=== PATIENT | male | born 1980 | race Caucasian/White ===

== ENCOUNTER 2024-06-28 12:08 | Emergency (ER) | payer OTHER, SELFPAY ==
--- NOTE | 2024-06-28 12:14 | ED.EAR ---
HPI - Ear Problem General Stated complaint: right ear Source: patient Mode of arrival: ambulatory Limitations: no limitations History of Present Illness HPI Narrative: 44 y/o male presented for c/o right ear pain. onset today. Pain is described as throbbing. Denies hearing changes, tinnitus, dizziness, jaw pain or clicking, n/v/d/f/c or recent illness. Says he has had similar symptoms intermittently over the past few years ,and it tends to occur with stress. States the pain started when he got to work and had more stress. Has not taken anything for symptoms. Complaint: ear pain Related Data Allergies Allergy/AdvReac Type Severity Reaction Status Date / Time No Known Drug Allergies Allergy Verified 10/05/11 13:06 Review of Systems Review of Systems: CONSTITUTIONAL: Denies malaise, chills, or fever. EYES: Denies visual changes, redness, or discharge. ENT: Denies rhinorrhea, congestion, sinus pain, and sore throat. Reports ear pain CARDIOVASCULAR: Denies chest pain, palpitations, or edema. RESPIRATORY: Denies cough or dyspnea. GASTROINTESTINAL: Denies abdominal pain, nausea, vomiting, diarrhea SKIN: Denies rash or itching. MUSCULOSKELETAL: Denies myalgia. NEUROLOGIC: Denies headache. All systems reviewed & are unremarkable except as noted in HPI and below PMFSH Comments At time of signature, agree with nursing past medical, surgical, social and family history. There is no relevant family history pertinent to the presenting complaint Exam Narrative: GENERAL: Well-appearing, and in no acute distress. HEAD: Normocephalic EYES: PERRLA, conjunctivae clear ENT: Nares clear. Mucous membranes moist. TMs pearly mckeon with dull light reflex bilaterally; no tragal tenderness. no drooling, no hoarseness, no trismus, uvula midline. NECK: Supple. No lymphadenopathy CHEST: Clear to auscultation, breath sounds equal. HEART: Regular rate and rhythm. No murmur heard. SKIN: Warm, dry, no rash. NEURO: Alert and oriented x3. PSYCH: Normal mood and affect Course Course Emergency Course: Patient is aware of diagnosis, understands and agrees to treatment plan. Anticipatory guidance given. Patient agrees to follow-up as directed and is aware of reasons to seek care at the emergency department. Portions of this record may have been created with voice recognition software Level of Care: Express Care Visit Vital Signs Vital signs: Reviewed Medical Decision Making MDM Narrative Medical decision making narrative: discussed physical exam findings, no cerumen impaction, no infection.Advised supportive measures and signs/symptoms to go to the ER. Patient is appropriate for outpatient treatment and follow-up. Differential Diagnosis Differential Diagnosis: Coronavirus, strep pharyngitis, allergic rhinitis, upper respiratory tract infection, sinusitis, rhinosinusitis, nasopharyngitis, viral pharyngitis, otitis media, otitis externa, eustachian tube dysfunction, foreign body, cerumen impaction. Discharge Plan Discharge Clinical Impression: Otalgia of right ear Patient Disposition: Home, Self-Care Condition: Stable Instructions: Antibiotic Form, Earache (ED) Additional Instructions: Recommend antihistamine such as Benadryl, Zyrtec or Kasia for sinus congestion Flonase nasal spray, 1 spray in each nostril once daily until symptoms improve Tylenol 1000mg every 8 hours as needed to reduce fever, pain Please schedule a follow-up visit with your personal physician if your symptoms persist, change or worsen significantly, go to the emergency department for further evaluation. Patient Language: Romanian Follow-up/Referrals: Grady,Burak Perdomo MD [Primary Care Provider] - Time of Disposition: 12:25
[2024-06-28 12:16] VITALS: BP 140/71; PULSE 74; RESP 16; TEMP 36.9; O2SAT 100
--- OUTSIDE RECORDS SUMMARY | 2024-06-28 12:29 | XMS_ITS | Referral Summary ---
Author Organization [facility] Address [address] [place] [address] Care Team Providers Care Human Resources Vice President Name Role Phone Lester Rodriguez MD Primary Care Provider [phone] Source Comments [facility],non-[facility] Affiliates and Associated Physician Practices is amultiple site organization consisting of ambulatory clinics and hospital sitesin [place], [place], [place] and [place]. This disclosure is being madepursuant to the Care Everywhere program and may not contain all information available regarding this patient. Last updated 18.[facility] [employer] Social History Tobacco Use Types Packs/Day Years Used Date Smoking Tobacco: Never Assessed Sex and Gender Information Value Date Recorded Sex Assigned at Not on file Gender Identity Not on file Sexual Orientation Not on file Last Filed Vital Signs Vital Sign Reading Time Taken Comments Blood Pressure 132/84 06/25/2018 5:07 PM [facility] Pulse 75 06/25/2018 5:07 PM [facility] Temperature 37.1 C (98.7 F) 06/25/2018 5:07 PM [facility] Respiratory Rate - - Oxygen Saturation 94% 06/25/2018 5:07 PM [facility] Inhaled Oxygen Concentration - - Weight 72.6 kg (160 lb) 06/25/2018 5:07 PM [facility] Height 182.9 cm (6') 06/25/2018 5:07 PM [facility] Body Mass Index 21.7 06/25/2018 5:07 PM [facility] Plan of Treatment Not on file Care Teams Human Resources Vice President Relationship Specialty Start Date End Date Lester Rodriguez MD [facility] [place] [address] PCP - General Family Medicine 06/25/18
--- OUTSIDE RECORDS SUMMARY | 2024-06-28 12:29 | XMS_ITS | Referral Summary ---
Author Organization [facility] [address] Address [address] [place] [address] Phone Care Team Providers Care Maker Up Folding Name Role Phone Burak Rasmussen MD Primary Care Provider [phone] Rashad Love MD Unavailable [phone] Elton Goodman MD Unavailable Allergies No known active allergies Medications multivitamin tabletIndicatio ns:Vitamin Deficiency Prevention Take 1 tablet by mouth daily 02/17/2023 Active amitriptyline (ELAVIL) 10 mg tabletIndicatio ns:TMJ arthralgia Take 1 tablet (10 mg total) by mouth nightly 30 tablet 1 02/13/2024 Active Active Problems Problem Noted Date Diagnosed Date Popping of right ear 01/18/2024 Assessment & Plan (02/16/2024 9:10 AM CDT): New symptom, started about a month ago. He notes frequent popping sensations in the right ear and subjective loss of hearing on that side. Sometimes he hears his heart pounding in his ears. He reports extreme stress at work which seems to precipitate the symptoms. His notes grinding of his teeth at night. On exam, canals are normal. There is mild bilateral TM dullness or sclerosis, but no acute findings. There is moderate crepitus in the right TMJ with opening and closing of the jaw. 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 Other causes are possible. In particular, he notes a mild flare of allergic rhinitis recently, and he is a smoker which could cause Eustachian tube dysfunction. I recommended a trial of low-dose amitriptyline at night to start with. Return in 1-2 weeks for re- evaluation and for his annual. Other chest pain 01/18/2024 Assessment & Plan (02/16/2024 9:09 AM CDT): New symptom, started about a month ago concurrent with the popping of his right ear. He describes intermittent retrosternal chest burning or tightness that lasts for up to an hour at a time and subsides spontaneously. It is not precipitated by exertion. He can finish a full game of golf without having any chest symptoms. He does note these symptoms when he is under extreme stress which has been the case lately at work. He denies radiation of the pain into the neck or jaw or arms. We ordered an EKG in the office today which is normal except for nonspecific RSR in precordial leads V1&2, and left atrial enlargement. Symptoms are somewhat suggestive of coronary disease. We ordered a treadmill stress test and labs for further risk stratification. We also ordered an echocardiogram to evaluate chamber size and valve function. Return in about two weeks. 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 We are starting a trial of low dose amitriptyline. 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 EMG 04/23/2021: This is an abnormal electrodiagnostic study with evidence of right median sensory entrapment neuropathy of the flexor retinaculum, i.e., carpal tunnel syndrome. 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 Patient declined referral. Assessment & Plan (02/17/2023 6:01 PM CDT): Symptoms are largely unchanged. There is no evidence of muscle atrophy or fasciculations. He previously declined referral and does not want to pursue anything at this time. We will monitor clinically. Assessment & Plan (05/19/2021 12:12 PM SALES PLANNER): We evaluated him for neuropathic symptoms in the right arm. EMG/NCS is consistent with median nerve neuropathy. Exam is stable with no weakness, atrophy, fasciculations. Reflexes are diffusely hypoactive and symmetrical. His symptoms fluctuate but do not seem to be progressive. There do seem to be some possible nerve root symptoms as well including pain in the upper right scapula area, and intermittent numbness in the low right thumb only. Symptoms are exacerbated when he extends his neck. He says symptoms are not bad enough to pursue additional evaluation or treatment at this time such as MRI of the C-spine. He will call if there is progression including any worsening of pain, development of weakness, loss of muscle mass. Right elbow pain 02/16/2021 Overview (06/07/2022): Hit elbow on railing of his boat or his deck, not sure where or exactly when, injury was probably around 01/31/2021. EMG 04/23/2021: This is an abnormal electrodiagnostic study with evidence of right median sensory entrapment neuropathy of the flexor retinaculum, i.e., carpal tunnel syndrome. 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 Assessment & Plan (05/02/2021 5:22 PM SALES PLANNER): We evaluated him for right elbow pain, and distal symptoms which route returner to probably be due to median nerve neuropathy. He does not want any additional evaluation or treatment at this time. Symptoms are intermittent and not progressive. He takes ibuprofen occasionally as needed. Assessment & Plan (03/18/2021 5:00 PM CDT): About one month ago, he forcefully and accidentally hit the mid to distal triceps area of the right arm on his deck or on the railing on his boat. He does not remember the exact details. It was sore for awhile afterwards, but gradually improved. About two weeks ago, he developed pain in the right shoulder extending distally to the elbow area and then down the forearm to his right thumb where he has some numbness in the thumb. The discomfort is moderate and keeps him from sleeping well. He denies having any pain or history of injury in the neck. He does have a history of remote injury (15 years ago) to the right upper back between the shoulder blade and spine. This still bothers him at times in certain positions and when he presses on that area. He has not tried any OTC medication for this discomfort. Exam is negative for any swelling or deformity. Strength is normal. Reflexes are diminished in the right arm compared to the left. This sounds like a neuropathic pain. It could be a contusion from his previous injury, or could be unrelated. We will get an EMG and nerve conduction study. We will have him take some Aleve for a couple of weeks to see if that helps. We will check some labs as ordered. We will see him back in two weeks to go over EMG results and determine if additional workup or referral as needed. Other fatigue 11/16/2018 Overview (05/02/2021): Seemed to start after he turned 38. Assessment & Plan (03/08/2023 6:15 AM CDT): He again complains of fatigue. He denies daytime sleepiness. He declines any evaluation of this symptom. He figures it is just that he is getting older and has a very busy family life. 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 Assessment & Plan (05/19/2021 12:14 PM SALES PLANNER): He complains of having a fair amount of fatigue. Most of this sounds like lack of motivation. He is also not a morning person. It takes him several cups of coffee to get going in the morning. He gets 7-8 hours of sleep but wakes up feeling unrested. His says he snores. At night he has no motivation to do things. The winter months are especially hard on him. Recent labs were pretty unremarkable except for mild hyponatremia and mild hyperkalemia. It seems like after the age of 38 he lost a lot of interest in various activities including sports, Internet marc with friends, even outdoor activities, although he enjoys boating during the summer months. He has two young sons aged four and nine. The 9-year-old is getting into basketball so he is somewhat involved in that activity. His symptoms of fatigue are probably multifactorial. There is the possibility of obstructive sleep apnea although he does not fit the typical profile. It sounds like he has some mild dysphoria, possibly seasonal affective disorder. He also seems somewhat bored with his current work and life routine. The electrolyte abnormalities are somewhat suggestive of adrenal insufficiency. We will check follow-up electrolytes and a random cortisol. Otherwise I recommended that he try become more physically active. We discussed possible follow-up in six months, but he prefers in annual follow-up. He will advise me of any changes in his status before then. Lower urinary tract symptoms (LUTS) 10/26/2018 Overview (11/07/2018): Mild difficulty urinating first thing in a.m. Mild prostate enlargement on exam. Patient declined PSA screen or urology referral, see phone message. Assessment & Plan (03/08/2023 6:14 AM CDT): In the past, he has mentioned lower urinary symptoms (mild difficulty with urination first thing in the morning). He declined evaluation at that time. He has no new urinary symptoms of concern. We will continue to monitor clinically. Assessment & Plan (11/01/2019 1:32 PM CDT): He has some mild urinary difficulty first thing in the morning, and at his initial visit there was mild prostate enlargement. He had declined PSA testing. There is no family history of prostate cancer. He declines a follow-up rectal today. He says there is no progression of his urinary symptoms. No dysuria or hematuria. Chronic pain of right knee 10/17/2016 Overview (10/26/2018): Medial right femoral condyle pain for 2 years, usually with overuse. Walks on concrete a lot. Assessment & Plan (05/02/2021 5:27 PM SALES PLANNER): He continues to have intermittent pain in the right medial knee, currently localized to the tibial plateau, but somewhat ill-defined, previously more femoral condyle area. This could be a chronic injury from previous athletics (he played a lot of basketball). He also spends a lot of time on concrete floors at work. Exam is notable for very mild localized tenderness over the anterolateral medial tibial plateau. There is no joint effusion or warmth. We will monitor clinically. Assessment & Plan (11/03/2018 3:11 PM CDT): For the past two years, he has had intermittent pain in the right knee. It seems to localize to the medial femoral condyle, and radiates somewhat proximally into the right medial thigh. He walks on concrete a lot, and this makes the pain worse. He denies any history of injury. Exam shows no abnormality. We discussed getting an x-ray versus other evaluation, but symptoms seem fairly mild at this time, so he wants to defer any additional workup for the time being. He will call if things get worse for additional evaluation and referral. Tobacco use disorder 10/17/1997 Assessment & Plan (02/13/2024 2:16 PM CDT): Chronic, present for decades, uncontrolled. He is still smoking cigarettes. He knows he should quit and has tried several times without success. We encouraged ongoing efforts and gave him some resources. Assessment & Plan (02/17/2023 6:02 PM CDT): He continues to smoke about 3/4 PPD. He is motivated to quit and did successfully quit for a few months when he turned 38. He plans to try again. We discussed aids that might help him quit including patches, gum and medications, but he is not interested in these options at this time. Assessment & Plan (05/19/2021 12:11 PM SALES PLANNER): He is still smoking cigarettes, about 1/2 pack per day. We discussed smoking cessation strategies including picking a quit date and using nicotine replacement. I suggested the patches. He has used him successfully in the past to quit for a couple of months on his [age] birthday. Unfortunately he relapsed. He plans to try again. Assessment & Plan (11/01/2019 1:32 PM CDT): He continues to smoke cigarettes I strongly encouraged smoking cessation. Assessment & Plan (05/21/2019 9:16 AM SALES PLANNER): He quit successfully for about four months, but then relapsed. I encouraged him to try cessation again. Assessment & Plan (11/03/2018 3:12 PM CDT): He has smoked since age 17. He successfully quit using the nicotine patches when he turned 38, but then relapsed pretty quickly. He is smoking less than he did previously, only about 1/3 of a pack a day. I strongly urged him to quit smoking again. He can try the nicotine patch again. The cost is about the same as cigarettes. We also discussed the option of using a medication to help him quit, but he has to have a strong desire to quit. He does enjoy the habit but knows that it is bad for him. Resolved Problems Problem Noted Date Diagnosed Date Resolved Date Vasectomy evaluation 11/16/2022 024 Overview (02/13/2024): Vasectomy 10/23/2022, Dr. Goodman. Acute bacterial rhinosinusitis 07/27/2021 06/07/2022 Overview (06/07/2022): Saw ETIENNE Carl. Steroid and antibiotic Rx. Assessment & Plan (07/27/2021 1:45 PM SALES PLANNER): Patient presents with low grade fever, congestion, sinus pressure and cough x 1 week. He was rapid tested for covid and flu as he has not been vaccinated. Testing was negative. On exam he has sinus pressure, bilateral effusions, swollen turbinates and faint wheezing. Symptoms suggestive of acute sinusitis. We will begin him on antibiotic therapy. We will also give steroid to help with secretions and as he does have some wheezing on exam. He will call or return should symptoms worsen or persist. Hyperkalemia 03/07/2021 06/16/2021 Assessment & Plan (06/16/2021 4:58 PM SALES PLANNER): Normal on follow up. Normal Cortisol. Assessment & Plan (05/02/2021 5:22 PM SALES PLANNER): On recent labs, there was mild hyperkalemia and mild hyponatremia. His diet is not the greatest. He eats fair amount of fast food and prepared foods such as frozen dinners. We will check follow-up renal function panel and random cortisol due to complaints of fatigue as well as the electrolyte abnormalities. Ingrown hair 05/07/2019 11/01/2019 Overview (11/01/2019): Resolved. See office note. Assessment & Plan (05/21/2019 9:15 AM SALES PLANNER): He has had a slightly irritated red bump in the right upper groin/scrotal area for the past 2-3 weeks. At first, he thought it was some irritation from his boxer shorts, but when it did not go away, he decided to come get it checked out. It measures a few mm across it is most suggestive of a mildly inflamed hair follicle. There's been no drainage. He has not had a fever. He has no STD concerns. There's no dysuria or hematuria. We will have him apply warm soaks several times a day followed by some topical Neosporin. If symptoms do not resolve over the next week or so, return for re-evaluation. Community acquired pneumonia of right lung 03/22/2019 05/20/2019 Overview (05/20/2019): Details lacking. Hematochezia 10/17/2017 02/13/2024 Overview (02/13/2024): Patient referred for colonoscopy at initial visit, states he will call back when work schedule allows him to proceed. See phone message. Colonoscopy 10/08/2021 normal except hemorrhoids, Dr. Love. Assessment & Plan (05/02/2021 5:25 PM SALES PLANNER): He has repeatedly delayed having the recommended colonoscopy for an episode of hematochezia several years ago. Currently he says he has a slight change in his bowel habits which he has tried to remedy by eating more greens. He says his diet is pretty terrible. He resorts to fast food and convenience foods frequently. He describes incomplete sensation of defecation. There is no blood in the stools. Abdominal exam is benign. We will try to expedite a colonoscopy. Assessment & Plan (11/01/2019 1:31 PM CDT): He had some hematochezia about a year ago after having a difficult bowel movement. It has not recurred. There is no family history of early colon cancer or polyps. He delayed getting the recommended colonoscopy, and by the time he got around to scheduling it there were delays due to COVID-19. He still plans to have it done. He has no new bowel complaints. Assessment & Plan (05/30/2019 5:06 AM SALES PLANNER): He had some hematochezia about a year and a half ago and was referred for colonoscopy, but between his schedule and hospital availability, he never got it done. He says he will get it scheduled now before his follow-up in October. Assessment & Plan (10/26/2018 1:44 PM CDT): Over the past year or so, he has had four or five episodes of blood in the stools, possibly anal bleeding. He also notes that his stools are a little bit more difficult to evacuate, and he has a sensation of incomplete evacuation. Exam shows some possible internal hemorrhoids, otherwise no abnormality. There is no stool for guaiac testing. We will the refer for colonoscopy given the symptoms. Immunizations Name Administration Dates Next Due Influenza, Unspecified 02/13/2024(Deferr ed: Patient Refused),03/10/2023(Deferred: Patient Refused) Social History Tobacco Use Types Packs/Day Years Used Date Smoking Tobacco: Every Day Cigarettes 0.7 26.7 Started: 10/17/1997 Smokeless Tobacco: Never Tobacco Cessation:Ready to Q uit: Not Asked; Counseling Given: Not Answered AUDIT-C Answer Date Recorded Frequency of Alcohol Consumption Not on file 10/05/2021 Average Number of Drinks Not on file 022 Q3: How often do you have si x or more drinks on one occasion? Weekly 10/05/2021 PHQ-2 Answer Date Recorded PHQ-2 Total Score 0 02/17/2023 Personal Safety Answer Date Recorded Getting School Help Needed Not on file 05/07 Sex and Gender Information Value Date Recorded Sex Assigned at Not on file Legal Sex Male 12:03 PM SALES PLANNER Gender Identity Male 04/19/2021 10:24 AM SALES PLANNER Sexual Orientation Not on file Last Filed Vital Signs Vital Sign Reading Time Taken Comments Blood Pressure 116/72 02/13/2024 1:32 PM CDT Pulse 81 02/13/2024 1:32 PM CDT Temperature 36.7 C (98 F) 02/13/2024 1:32 PM CDT Respiratory Rate 16 02/13/2024 1:32 PM CDT Oxygen Saturation 98% 02/13/2024 1:32 PM CDT Inhaled Oxygen Concentration - - Weight 72.6 kg (160 lb) 03/12/2024 9:04 AM CDT Height 185.4 cm (6' 1 ) 03/12/2024 9:04 AM CDT Body Mass Index 21.11 03/12/2024 9:04 AM CDT Plan of Treatment Not on file Procedures Procedure Name Priority Date/Time Associated Diagnosis Comments COLONOSCOPY 10/08/2021 7:45 AM CDT from Last 3 Months or Most Recently Relevant to Health Maintenance Results * COLONOSCOPY (10/08/2021 7:45 AM CDT) Anatomical Region Laterality Modality Other Narrative Procedure Note Rashad Love MD - 10/08/2021 7:45 AM CDT [facility] Patient Name: Jakob Jessica Procedure Date: 10/08/2021 7:45 AM Date of : 1980 Admit Type: Outpatient Age: 41 Gender: Male Attending MD: Rashad Love M.D. Room: [facility] 1 Note Status: Finalized Patient Profile: This is a 41 year old male. Patient had recentepisode or 2 of bright red blood in the rectum when hewiped the tissue. No family history of colon cancer. Procedure: Colonoscopy Indications: This is the patient's first colonoscopy, Rectal bleeding Referring MD: Burak Rasmussen M.D. Providers: Rashad Love M.D. Impression: - The entire examined colon is normal overall. - Internal hemorrhoids. - No specimens collected. Recommendation: - Repeat colonoscopy in 10 years for screening purposes. - Continue present medications. - Maintain high-fiber diet and use any [id number] hemorrhoid preparations asneeded Medicines: Monitored Anesthesia Care Complications: No immediate complications. Estimated Blood Loss: Estimated blood loss: none. Procedure: Pre-Anesthesia Assessment: - Prior to the procedure, a History and Physicalwas performed, and patient medications and allergieswere reviewed. The patient's tolerance of previous anesthesia was also reviewed. The risks andbenefits of the procedure and the sedation options and risks were discussed with the patient. All questions were answered, and informed consent was obtained. Prior Anticoagulants: The patient has taken noanticoagulant or antiplatelet agents. ASA Grade Assessment: III -A patient with severe systemic disease. Afterreviewing the risks and benefits, the patient was deemed in satisfactory condition to undergo the procedure. The benefits, risks and alternatives of theprocedure and sedation were discussed and informed consentwas obtained. All questions were answered. Please referto the signed informed consent document in the medical record. The bowel preparation used was Miralax and bisacodyl tablets via split dose instruction. The scope was passed under direct vision. The Pediatric Colonoscope PCF-H190L [id number] was introducedthrough the anus and advanced to the the cecum, identifiedby appendiceal orifice and ileocecal valve. Thequality of the bowel preparation was good. Bowel prep was administered using a split dose. Findings: The perianal and digital rectal examinations were normal. The cecum appeared normal. The colon (entire examined portion) appeared normal overall. Nopolyps and no mass lesions noted. One small 2 mm arteriovenous malformations noted in the proximal transverse colon with no stigmata bleeding. No inflammatory changes noted in the colon Internal hemorrhoids were found during retroflexion. The hemorrhoids were medium-sized. Likely source of bleeding Electronically signed by Rashad Love M.D. Rashad Love M.D. 10/08/2021 9:45:29 AM Number of Addenda: 0 Note Initiated On: 10/08/2021 7:45 AM Procedure Code(s): --- Professional --- 16929, Colonoscopy, flexible; diagnostic, including collection of specimen(s) by brushing or washing, when performed (separateprocedure) Diagnosis Code(s): --- Professional --- K64.8, Other hemorrhoids K62.5, Hemorrhage of anus and rectum CPT copyright 2020 [employer]. All rights reserved. The codes documented in this report are preliminary and upon engineering supervisor reviewmay be revised to meet current compliance requirements. Recognized by the [employer] for promoting quality in endoscopy Rashad Love MD ENDOSCOPY PROCEDURES Final Result from Last 3 Months or Most Recently Relevant to Health Maintenance Insurance [facility] Advance Directives For more information, please contact: [phone] * Full Code (Latest Code Status on File) Date Activated Date Inactivated Comments 10/08/2021 7:51 AM 10/08/2021 2:04 PM * Full Code Date Activated Date Inactivated Comments 10/08/2021 7:51 AM 10/08/2021 7:51 AM Care Teams Maker Up Folding Relationship Specialty Start Date End Date Burak Rasmussen MD [address] [place] [id number] PCP - General Internal Medicine 11/02/20 Rashad Love MD [address] [place] [id number] Consulting Physician Gastroenterology 10/08/21 Elton Goodman MD [address] [facility] [place] [address] Urology 09/06/22
--- OUTSIDE RECORDS SUMMARY | 2024-06-28 12:29 | XMS_ITS | Clinical Summary ---
Author Organization [facility] [place] [address] Address [address] [place] [address] Phone Care Team Providers Care Group Contract Analyst Name Role Phone Burak Rasmussen MD Primary Care Provider [phone] Rashad Love MD Unavailable [phone] Elton Goodman MD Unavailable Allergies No known [...] clinically. Assessment & Plan (05/19/2021 12:12 PM ORIENTATION AND MOBILITY INSTRUCTOR): We evaluated him for neuropathic symptoms in [...] wrist. Assessment & Plan (05/02/2021 5:22 PM ORIENTATION AND MOBILITY INSTRUCTOR): We evaluated him for right elbow pain, and distal symptoms which fitter and turner to probably be due to median nerve [...] life. 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 Assessment & Plan (05/19/2021 12:14 PM ORIENTATION AND MOBILITY INSTRUCTOR): He complains of having a fair amount [...] lot. Assessment & Plan (05/02/2021 5:27 PM ORIENTATION AND MOBILITY INSTRUCTOR): He continues to have intermittent pain in [...] time. Assessment & Plan (05/19/2021 12:11 PM ORIENTATION AND MOBILITY INSTRUCTOR): He is still smoking cigarettes, about 1/2 [...] cessation. Assessment & Plan (05/21/2019 9:16 AM ORIENTATION AND MOBILITY INSTRUCTOR): He quit successfully for about four months, [...] Rx. Assessment & Plan (07/27/2021 1:45 PM ORIENTATION AND MOBILITY INSTRUCTOR): Patient presents with low grade fever, congestion, [...] 06/16/2021 Assessment & Plan (06/16/2021 4:58 PM ORIENTATION AND MOBILITY INSTRUCTOR): Normal on follow up. Normal Cortisol. Assessment & Plan (05/02/2021 5:22 PM ORIENTATION AND MOBILITY INSTRUCTOR): On recent labs, there was mild hyperkalemia [...] note. Assessment & Plan (05/21/2019 9:15 AM ORIENTATION AND MOBILITY INSTRUCTOR): He has had a slightly irritated red [...] Love. Assessment & Plan (05/02/2021 5:25 PM ORIENTATION AND MOBILITY INSTRUCTOR): He has repeatedly delayed having the recommended [...] complaints. Assessment & Plan (05/30/2019 5:06 AM ORIENTATION AND MOBILITY INSTRUCTOR): He had some hematochezia about a year [...] Unspecified 02/13/2024(Deferr ed: Patient Refused),03/10/2023(Deferred: Patient Refused) Surgical History Surgery Date Site/Laterality Comments [facility] COLONOSCOPY 10/08/2021 Normal except for hemorrhoids. VASECTOMY 10/23/[address] Elton Goodman Medical History Medical History Date Comments Chronic pain of right knee 10/17/2016 Media l left femoral condyle pain for 2 years, usually with overuse. Walks on concrete a lot. Community acquired pneumonia of right lung 03/22/2019 See phone message. Lower urinary tract symptoms (LUTS) 10/26/2018 Mild difficulty urinating first thing in a.m. Mild prostate enlargement on exam. Patient declined PSA screen or urology referral, see phone message. Ingrown hair 05/07/2019 Resolved. See of ananya note. Hyperkalemia 03/07/2021 PONV (postoperative nausea a nd vomiting) Acute bacterial rhinosinusitis 07/27/2021 Bimla Rendon V, ANP. Steroid and antibiotic Rx. LLL pneumonia 02/22/2017 [facility] Dental abscess 11/10/2022 [facility] Hematochezia 10/17/2017 Patient referred for colonoscopy at initial visit, states he will call back when work schedule allows him to proceed. See phone message. Colonoscopy 10/08/2021 normal except hemorrhoids, Dr. Love. Vasectomy evaluation 11/16/2022 Vasectomy 0 10/23/2022, Dr. Goodman. Family History Medical History Relation Name Comments Diabetes Father Obesity Father Throat cancer Maternal Grandfather Smoker Other Mother 4 lawson accid ent Cancer Paternal Grandfather Unknown type Relation Name Status Comments Father Alive Maternal Grandfather Mother Paternal Grandfather Social History Tobacco Use Types Packs/Day Years [...] on file Legal Sex Male 12:03 PM ORIENTATION AND MOBILITY INSTRUCTOR Gender Identity Male 04/19/2021 10:24 AM ORIENTATION AND MOBILITY INSTRUCTOR Sexual Orientation Not on file Obstetrics History Last Filed Vital Signs Vital Sign Reading [...] 03/12/2024 9:04 AM CDT Plan of Treatment Health Maintenance Due Date Last Done Comments Hepatitis C Screening 1978 Pneumococcal vaccine <65 (1 of 2 - PCV) 1984 DTaP/Tdap/Td Vaccine (1 - Tdap) 1989 Hepatitis B Screening 1996 Influenza Vaccine (#1) 2024 Depression Screening 02/18/2024 02/17/2023, 02/17/2023, 05/02/2021, Additional history exists Regular Well Visit/Exam 18-64 02/18/2024 02/17/2023, 05/02/2021, 11/01/2019, Additional history exists Colon Cancer Screening-Colonoscopy 10/09/2031 10/08/2021 HPV Vaccines Aged Out No longer eligi ble based on patient's age to complete this topic Procedures Procedure Name Priority Date/Time Associated Diagnosis [...] Male Attending MD: Rashad Love M.D. Room: [facility] RO[facility] 1 Note Status: Finalized Patient [...] - Maintain high-fiber diet and use any [id number] hemorrhoid preparations asneeded Medicines: Monitored Anesthesia Care [...] under direct vision. The Pediatric Colonoscope [id number]-H190L [id number] was introducedthrough the anus and advanced to [...] 7:45 AM Procedure Code(s): --- Professional --- 72076, Colonoscopy, flexible; diagnostic, including collection of specimen(s) by brushing or washing, when performed (separateprocedure) Diagnosis Code(s): --- Professional --- K64.8, Other hemorrhoids K62.5, Hemorrhage of anus and rectum CPT copyright 2020 [employer]. All rights reserved. The codes documented in this report are preliminary and upon vector control assistant reviewmay be revised to meet current compliance requirements. Recognized by the [employer] for promoting quality in endoscopy Rashad Love MD ENDOSCOPY PROCEDURES Final Result from Last 3 Months or Most Recently Relevant to Health Maintenance Insurance [facility] CHOICE PLUS CHOICE PLUS Advance Directives For more information, please contact: [phone] * Full Code (Latest Code Status on File) Date Activated Date Inactivated Comments 10/08/2021 7:51 AM 10/08/2021 2:04 PM * Full Code Date Activated Date Inactivated Comments 10/08/2021 7:51 AM 10/08/2021 7:51 AM Care Teams Group Contract Analyst Relationship Specialty Start Date End Date Burak Rasmussen MD [address] [place] [address] PCP - General Internal Medicine 11/02/20 Rashad Love MD [address] [id number] Consulting Physician Gastroenterology 10/08/21 Elton Goodman MD [address] [place] [id number] Urology 09/06/22
--- OUTSIDE RECORDS SUMMARY | 2024-06-28 12:29 | XMS_ITS | Patient Health Summary ---
Author Organization [facility] Address [address] [address] Care Team Providers Care Glue Spreading Machine Operator Name Role Phone Lester Rodriguez MD Primary Care Provider [phone] Note from [facility],non-owned Affiliates and Associated Physician Practices is amultiple site organization consisting of ambulatory clinics and hospital sitesin [place], [place], [place] and [place]. This disclosure is being madepursuant to the Care Everywhere program and may not contain all information available regarding this patient. Last updated 18.[facility] Social History Tobacco Use Types Packs/Day Years Used Date Smoking Tobacco: Never Assessed Sex and Gender Information Value Date Recorded Sex Assigned at Not on file Gender Identity Not on file Sexual Orientation Not on file Last Filed Vital Signs Vital Sign Reading Time Taken Comments Blood Pressure 132/84 06/25/2018 5:07 PM FRAME CARVER SPINDLE Pulse 75 06/25/2018 5:07 PM FRAME CARVER SPINDLE Temperature 37.1 C (98.7 F) 06/25/2018 5:07 PM FRAME CARVER SPINDLE Respiratory Rate - - Oxygen Saturation 94% 06/25/2018 5:07 PM FRAME CARVER SPINDLE Inhaled Oxygen Concentration - - Weight 72.6 kg (160 lb) 06/25/2018 5:07 PM FRAME CARVER SPINDLE Height 182.9 cm (6') 06/25/2018 5:07 PM FRAME CARVER SPINDLE Body Mass Index 21.7 06/25/2018 5:07 PM FRAME CARVER SPINDLE Care Teams Glue Spreading Machine Operator Relationship Specialty Start Date End Date Lester Rodriguez MD [facility] [place] [address] PCP - General Family Medicine 06/25/18
--- OUTSIDE RECORDS SUMMARY | 2024-06-28 12:29 | XMS_ITS | Clinical Summary ---
Author Organization [facility] Address [address] [place] [address] Phone Care Team Providers Care Protective Signal Operator Name Role Phone Provider, None Primary Care Provider Unavailabl e Allergies No known active allergies Medications azithromycin (ZITHROMAX) 250 MG Tablet 2 tab(s) daily for 1 day, then 1 tab(s) daily for days 2-5. 6 Tab 02/22/2017 Active Social History Tobacco Use Types Packs/Day Years Used Date Smoking Tobacco: Some Days Cigarettes Sex and Gender Information Value Date Recorded Sex Assigned at Not on file Legal Sex Male 6:19 AM CDT Gender Identity Not on file Sexual Orientation Not on file Last Filed Vital Signs Vital Sign Reading Time Taken Comments Blood Pressure 121/69 02/22/2017 6:27 AM CDT Pulse 100 02/22/2017 7:45 AM CDT Temperature 38.4 C (101.1 F) 02/22/2017 7:58 AM CDT Respiratory Rate 16 02/22/2017 7:35 AM CDT Oxygen Saturation 96% 02/22/2017 7:45 AM CDT Inhaled Oxygen Concentration - - Weight 72.6 kg (160 lb) 02/22/2017 6:27 AM CDT Height 182.9 cm (6') 02/22/2017 6:27 AM CDT Body Mass Index 21.7 02/22/2017 6:27 AM CDT Plan of Treatment Health Maintenance Due Date Last Done Comments Hepatitis C Virus (HCV) Screening 1978 TdaP Immunization 1978 Hepatitis B Immunization (1 of 3 - 19+ 3-dose series) 1997 Colonoscopy 2023 Colorectal Cancer Screening 2023 Influenza Immunization (#1) 2024 SARS-COV-2 Immunization (2023- season) 2024 Respiratory Syncytial Virus (RSV) Immunization (Adult) (1 - 1-dose 75+ series) 2053 Meningococcal Immunization (ACWY) Aged Out No longer eligible based on patient's age to complete this topic Pneumococcal Immunization Combined Aged Out No longer eligible based on patient's age to complete this topic Rotavirus Immunization Aged Out No lo nger eligible based on patient's age to complete this topic Care Teams Protective Signal Operator Relationship Specialty Start Date End Date Provider, None [place] PCP - General 02/22/17
--- OUTSIDE RECORDS SUMMARY | 2024-06-28 12:29 | XMS_ITS | Clinical Summary ---
Author Organization [facility] Address [address] [place] [address] Care Team Providers Care Warrant Clerk Name Role Phone Lester Rodriguez MD Primary Care Provider [phone] Source Comments [facility],non-owned Affiliates and Associated Physician Practices is amultiple site organization consisting of ambulatory clinics and hospital sitesin [place], [place], [place] and [place]. This disclosure is being madepursuant to the Care Everywhere program and may not contain all information available regarding this patient. Last updated 18.[facility] Social History Tobacco Use Types Packs/Day Years Used Date Smoking Tobacco: Never Assessed Sex and Gender Information Value Date Recorded Sex Assigned at Not on file Gender Identity Not on file Sexual Orientation Not on file Last Filed Vital Signs Vital Sign Reading Time Taken Comments Blood Pressure 132/84 06/25/2018 5:07 PM WINERY CELLAR HAND Pulse 75 06/25/2018 5:07 PM WINERY CELLAR HAND Temperature 37.1 C (98.7 F) 06/25/2018 5:07 PM WINERY CELLAR HAND Respiratory Rate - - Oxygen Saturation 94% 06/25/2018 5:07 PM WINERY CELLAR HAND Inhaled Oxygen Concentration - - Weight 72.6 kg (160 lb) 06/25/2018 5:07 PM WINERY CELLAR HAND Height 182.9 cm (6') 06/25/2018 5:07 PM WINERY CELLAR HAND Body Mass Index 21.7 06/25/2018 5:07 PM WINERY CELLAR HAND Plan of Treatment Health Maintenance Due Date Last Done Comments COLOGUARD (AGES 45-75) - COL ON CA SCREENING 1978 COLON MONITORING 1978 COLONOSCOPY - COLON CA SCREENING 1978 CT COLONOGRAPHY - COLON CA SCREENING 1978 Colorectal Cancer Screening 1978 FIT - COLON CA SCREENING 1978 FLEX SIG - COLON CA SCREENING 1978 LIPID TESTING 1978 HIV SCREENING 1993 HEPATITIS C SCREENING 06/17/1996 DTAP/TDAP/TD VACCINES (1 - Tdap) 1997 HEPATITIS B VACCINE (1 of 3 - 19+ 3-dose series) 1997 COVID-19 VACCINE (1 - 2023-2 5 season) 2024 INFLUENZA VACCINE (#1) 2024 DEPRESSION SCREENING 05/19/2024 ZOSTER VACCINE (1 of 2) 2028 HIB VACCINE Aged Out No longer eligi ble based on patient's age to complete this topic HPV VACCINE Aged Out No longer eligi ble based on patient's age to complete this topic MENINGOCOCCAL (Group B) VACCINE Aged Out No longer eligible based on patient's age to complete this topic MENINGOCOCCAL VACCINE Aged Out No jeremy pradip eligible based on patient's age to complete this topic PNEUMOCOCCAL VACCINE Aged Out No long er eligible based on patient's age to complete this topic Care Teams Warrant Clerk Relationship Specialty Start Date End Date Lester Rodriguez MD [facility] [facility] [place] [address] PCP - General Family Medicine 06/25/18
== END 2024-06-28 12:29 | disposition home or self-care (01) ==
PROVIDERS: Emergency Provider Nurse Practitioner Family; PCP Internal Medicine Infectious Disease
DX: H92.01 Otalgia, right ear (principal)
CPT/HCPCS: 99211; G0463